=== PATIENT | female | born 1940 | race Two or more races ===

== ENCOUNTER 2025-04-20 12:24 | Outpatient (CLI) | payer BC, SELFPAY ==
--- NOTE | 2025-04-20 13:56 | P.ANES_ITS ---
Anesthesia Charges Start Date/Time Anesthesia Start Date: 04/20/25 Anesthesia Start Time: 13:27 Stop Date/Time Anesthesia Stop Date: 04/20/25 Anesthesia Stop Time: 13:53 Summary Extremes of Age - Over 70 or under 1: MDA Coding CPT Codes CPT Codes: ANES LWR INTST NDSC NOS - [id number] ([id number]) P2 - PATIENT W/MILD SYST DISEASE, QK - CHART COLLECTOR 2-4 CNCRNT ANES PROC, QX - NATURALIZATION EXAMINER SVC W/ MD MED DIRECTION Additional Codes: Summary - Extremes of Age - Over 70 or under 1: MDA ([id number])
--- NOTE | 2025-04-20 13:56 | W.ANESCHARGE ---
Anesthesia Charges Start Date/Time Anesthesia Start Date: 04/20/25 Anesthesia Start Time: 13:27 Stop Date/Time Anesthesia Stop Date: 04/20/25 Anesthesia Stop Time: 13:53 Summary Extremes of Age - Over 70 or under 1: MDA Coding CPT Codes CPT Codes: ANES LWR INTST NDSC NOS - [id number] ([id number]) P2 - PATIENT W/MILD SYST DISEASE, QK - UNLOADER 2-4 CNCRNT ANES PROC, QX - CABLE FERRY OPERATOR SVC W/ MD MED DIRECTION Additional Codes: Summary - Extremes of Age - Over 70 or under 1: MDA ([id number])
--- NOTE | 2025-04-20 13:57 | P.ANES_ITS ---
Anesthesia Charges Start Date/Time Anesthesia Start Date: 04/20/25 Anesthesia Start Time: 13:27 Stop Date/Time Anesthesia Stop Date: 04/20/25 Anesthesia Stop Time: 13:53 Coding CPT Codes CPT Codes: LOWELL LWR INTST NDSC NOS - [id number] ([id number]) P2 - PATIENT W/MILD SYST DISEASE, QK - MEAL COOKER 2-4 CNCRNT ANES PROC, QX - UPSETTING MACHINE OPERATOR SVC W/ MD MED DIRECTION
--- NOTE | 2025-04-20 13:57 | W.ANESCHARGE ---
Anesthesia Charges Start Date/Time Anesthesia Start Date: 04/20/25 Anesthesia Start Time: 13:27 Stop Date/Time Anesthesia Stop Date: 04/20/25 Anesthesia Stop Time: 13:53 Coding CPT Codes CPT Codes: LOWELL LWR INTST NDSC NOS - [id number] ([id number]) P2 - PATIENT W/MILD SYST DISEASE, QK - INFORMATION MANAGEMENT OFFICER 2-4 CNCRNT ANES PROC, QX - PLANT ENGINEERING MANAGER SVC W/ MD MED DIRECTION
== END 2025-04-20 12:25 | disposition home or self-care (01) ==
PROVIDERS: PCP Family Medicine; Visit Provider Internal Medicine Gastroenterology
DX: K92.1 Melena (principal); D12.2 Benign neoplasm of ascending colon; D12.8 Benign neoplasm of rectum
CPT/HCPCS: 00811; 45385; 88305; 99100; T1013; J2704

== ENCOUNTER 2025-06-11 20:40 | Emergency (ER) | payer BC, SELFPAY ==
[2025-06-11] VITALS (7 sets, daily range): BP systolic 154–196; BP diastolic 67–73; PULSE 57–67; RESP 17–25; TEMP 36.8; O2SAT 96–98; BMI 31.8
--- OUTSIDE RECORDS SUMMARY | 2025-06-11 20:42 | XMS_ITS | Clinical Summary ---
Author Organization [facility] [employer] Address [address] [place] [address] Care Team Providers Care Lawn Care Professional Name Role Phone Keerthi Singh DO Primary Care Provider [phone] Allergies No known active allergies Medications cholecalciferol, Vitamin D3, (Vitamin D-3) 5,000 unit tab tablet Take 1 Tablet (5,000 units) by mouth once daily. 05/22/20 Active ascorbic acid, vitamin C, (Vitamin C) 500 mg tablet Take 1 Tablet (500 mg) by mouth once daily. 05/22/20 Active cyanocobalamin (Vitamin B-12) 250 mcg tablet Administer via J-tube once daily. 05/22/20 Active magnesium 250 mg tab Take 1 Tablet (250 mg) by mouth once daily. 05/22/20 Active cetirizine (ZYRTEC) 5 mg tablet Take 1 Tablet (5 mg) by mouth once daily. 05/22/20 Active biotin 5,000 mcg TbDi Take 1 Tablet (5,000 mcg) by mouth. 05/22/20 Active calcium carbonate (CALTRATE) 600 mg calcium (1,500 mg) tablet Take 1 Tablet (600 mg) by mouth two times daily with meals. 05/22/20 24 Active Zvaft-0-ZMH-EPA-Fi sh Oil 1,000 mg (120 mg-180 mg) cap Take 1 Capsule (1,000 mg) by mouth. 05/22/20 Active CPAPIndications:Ob structive sleep apnea on CPAP RESMED CPAP (E0601) machine for home use at pressure: 5-15cmw, Choice of mask (A7030 or A7034) w/full face cushion (A7031) x1/mo, nasal cushion (A7032) x2/mo, or nasal pillows (A7033) x 2/mo; Length of Need: 99 months; Frequency of use: Daily 1 Each 11/10/19 25 Active losartan (COZAAR) 25 mg tabletIndications: Cough due to LASHA inhibitor Take 1 Tablet (25 mg) by mouth once daily. 90 Tablet 3 05/28/20 25 Active pantoprazole (PROTONIX) 40 mg delayed-release tabletIndications: Gastroesophageal reflux disease with esophagitis, unspecified whether hemorrhage Take 1 Tablet (40 mg) by mouth once daily. 90 Tablet 3 05/28/20 25 Active metoprolol succinate (TOPROL XL) 25 mg Sustained-Release tabletIndications: Essential hypertension Take 1 Tablet (25 mg) by mouth once daily. 90 Tablet 3 05/28/20 25 Active hydroCHLOROthiazid e 25 mg tabletIndications: Essential hypertension Take 1 Tablet (25 mg) by mouth once daily. 90 Tablet 3 05/28/20 25 Active alendronate (FOSAMAX) 70 mg tabletIndications: Age-related osteoporosis without current pathological fracture Take 1 Tablet (70 mg) by mouth once a week in the morning. 13 Tablet 3 05/28/20 25 Active lovastatin 40 mg tabletIndications: Hyperlipidemia, unspecified hyperlipidemia type Take 1 Tablet (40 mg) by mouth once daily. 90 Tablet 3 05/28/20 25 Active fluticasone (50 mcg per actuation) nasal solution (FLONASE)Indicatio ns:Chronic allergic rhinitis Inhale 2 Sprays in both nostrils once daily. 16 g 5 05/28/20 25 Active lovastatin (MEVACOR) 40 mg tabletIndications: Hyperlipidemia, unspecified hyperlipidemia type Take 1 Tablet (40 mg) by mouth once daily. 90 Tablet 3 06/19/20 24 025 Discontin ued(Reord er (E-cancel not sent)) pantoprazole (PROTONIX) 40 mg delayed-release tabletIndications: Gastroesophageal reflux disease with esophagitis, unspecified whether hemorrhage Take 1 Tablet (40 mg) by mouth once daily. 90 Tablet 3 12/13/ 025 Discontin ued(Reord er (E-cancel not sent)) lisinopriL (PRINIVIL; ZESTRIL) 5 mg tabletIndications: Essential hypertension Take 1 Tablet (5 mg) by mouth once daily. 90 Tablet 3 08/16/19 25 025 Discontin ued(*Rufus rgic/Adve rse Rxn/Side Effects) alendronate (FOSAMAX) 70 mg tabletIndications: Age-related osteoporosis without current pathological fracture Take 1 Tablet (70 mg) by mouth once a week in the morning. 13 Tablet 3 08/16/19 25 025 Discontin ued(Reord er (E-cancel not sent)) hydroCHLOROthiazid e 25 mg tabletIndications: Essential hypertension Take 1 Tablet (25 mg) by mouth once daily. 90 Tablet 3 12/19/19 25 025 Discontin ued(Reord er (E-cancel not sent)) polyethylene glycol-electrolyte (GOLYTELY) 236-22.74-6.74 -5.86 gram suspensionIndicati ons:Encounter for screening colonoscopy Drink 2 liters (half the bottle) the day before colonoscopy and 2 liters (remaining prep) 6 hours prior to colonoscopy appointment. 4000 mL 04/13/20 025 Discontin ued(*Med complete/ Regimen complete/ Level of care change) metoprolol succinate (TOPROL XL) 25 mg Sustained-Release tabletIndications: Essential hypertension Take 1 Tablet (25 mg) by mouth once daily. 90 Tablet 1 04/21/20 025 Discontin ued(Reord er (E-cancel not sent)) Active Problems Problem Noted Date Diagnosed Date Paroxysmal tachycardia 05/28/2025 Paroxysmal SVT (supraventricular tachycardia) Age-related osteoporosis wit hout current pathological fracture 05/22/2024 Overview (05/22/2024): Started Fosamax in 2021 ([place], [place]) Obstructive sleep apnea on CPAP 05/22/2024 Gastroesophageal reflux disease with esophagitis 05/22/2024 Peptic ulcer disease 05/22/2024 Essential hypertension 05/22/2024 Bilateral hearing loss 05/22/2024 Encounters Date Type Department Care Team Description 05/29/2025 Telephone [facility] [address] [place] [address] Keerthi Singh Kassidy, DO Results 05/28/2025 7:40 AM CDT Office Visit [facility] [address] [place] [address] Keerthi Singh Kassidy, DO Medicare ANNUAL (subsequent) Visit (84 year old female); Joint Pain (Feet x2 months, hands x2 years, PT did not help); Constipation (Takes Miralax daily, wondering if this is the only option? Ok to continue or other options? ); Cough (x2 years - worse over the last 2 weeks - no phlegm - allergies? ); Gas (Gas/belching ) 05/28/2025 Travel 05/11/2025 8:00 AM CDT Ancillary Procedure [facility] [address] [place] [phone] 05/11/2025 Travel 04/21/2025 Lab Requisition [facility] [phone] Jerry Maxwell MD 04/20/2025 12:30 PM CDT Office Visit [facility] [address] [place] [phone] Jerry aMxwell MD 04/19/2025 Telephone [facility] [address] [place] [address] Keerthi Singh, DO Form 04/19/2025 Refill [facility] [address] [place] [address] Keerthi Singh, DO Refill Request (Metoprolol Succinate) 04/13/2025 Telephone [facility] [address] [place] [address] Jerry Maxwell MD Screening 03/28/2025 Orders Only [facility] [address] [place] [phone] Eloisa Spencer, RGloriaTGloria (ARRT) 1 scan: (1-Ord) NFLD-EKG-03/27/2025 03/27/2025 9:00 AM CDT Office Visit [facility] [address] [place] [address] Sarabjit Holloway MD Consult (Paroxysmal SVT (supraventricular tachycardia) per Dr. Keerthi Singh ) 03/27/2025 Travel from Last 3 Months Immunizations Immunization Administration Dates Next Due COVID-19 VACCINE COMIRNATY ( [employer] 30MCG/0.3ML) 12YO+ PFS 07/22/2023 DTaP 03/09/2013 Influenza, High-dose Inactivated 03/29/2024 Influenza, Inactivated IIV3 (Age 65+ Years) Preserv Free 05/21/2025 Pneumococcal Poly,23-Valent (Pneumovax) 04/07/20 21,03/22/2013 Pneumococcal conj 13-Valent (Prevnar 13) 020 RSV, Recombinant ADJ Reconst ituted (Arexvy 120MCG/0.5mL) 05/28/2023 Tdap 10/25/2023,03/22/2013 Tetanus Toxoid, Unspecified 08/09/2011 Zoster (Shingrix-RZV, recombinant) 08/24/2023, Social History Tobacco Use Types Packs/Day Years Used Date Smoking Tobacco: Former Cigarettes 0.3 67.7 S tarted: 10/1957 Smokeless Tobacco: Never Tobacco Cessation:Counseling Given: Yes Alcohol Use Standard Drinks/Week Comments Not Currently 0 (1 standard drink = 0.6 oz pur e alcohol) PHQ-2 Answer Date Recorded PHQ-2 TOTAL SCORE 0 05/28/2025 Social Connections Answer Date Recorded Do you often feel lonely or isolated from those around you? 0 05/28/2025 Financial Resource Strain Answer Date R ecorded Difficulty of Paying Living Expenses 3 05/28/2025 Difficulty of Paying Living Expenses Not on file 05/28/2025 Food Insecurity Answer Date Recorded Do you worry your food will run out before you are able to buy more? 1 05/28/2025 Transportation Needs Answer Date Record ed Does lack of transportation keep you from medica l appointments? 1 05/28/2025 Does lack of transportation keep you from work, meetings or getting things that you need? 1 05/28/2025 Housing Stability Answer Date Recorded What is your housing situation today? 1 05/28/2025 Utilities Answer Date Recorded Do you have trouble paying f or utilities (for example, heat, electricity, water, phone)? 1 05/28/2025 Comments No Sex and Gender Information Value Date Recorded Sex Assigned at Not on file Legal Sex Female 1:47 PM CDT Gender Identity Not on file Sexual Orientation Not on file Obstetrics History Last Filed Vital Signs Vital Sign Reading Time Taken Comments Blood Pressure 158/68 05/28/2025 8:10 AM CDT Pulse 55 05/28/2025 8:10 AM CDT Temperature 36.7 C (98 F) 01/29/2025 7:43 AM CDT Respiratory Rate - - Oxygen Saturation 97% 05/28/2025 8:10 AM CDT Inhaled Oxygen Concentration - - Weight 76.9 kg (169 lb 8 oz) 05/28/2025 8:10 AM CDT Height 151.7 cm (4' 11.72) 05/28/2025 8:10 AM C DT Body Mass Index 33.41 05/28/2025 8:10 AM CDT Plan of Treatment Health Maintenance Due Date Last Done Comments BMI (ht and wt on same day) for age 18+ 05/28/2026 05/28/2025, 01/29/2025, 11/09/2024, Additional history exists Depression screening for age 12+ 05/28/2026 05/28/2025, 05/22/2024 Medicare Wellness for age 65+ 05/29/2026 05/28/2025, 05/22/2024 Tetanus booster 10/24/2033 10/25/2023, 03/22/2013 Pneumococcal series for age 50+ Completed 04/07/2021, 10/16/2019, 03/22/2013 RSV vaccine for adults or Completed 05/28/2023 Zoster (shingles) series for age 50+ Completed 08/24/2023, 05/28/2023 DEXA/DXA scan for age 65+ Completed 06/19/2024 Influenza Vaccine Completed 05/21/2025, 03/29/2024 Hepatitis B series for 19+ Aged Out N o longer eligible based on patient's age to complete this topic Procedures Procedure Name Priority Date/Time Associated Diagnosis Comments VITAMIN B12 Routine 05/28/2025 9:03 AM CDT Paresthesia of both hands VITAMIN D 25 (DEFICIENCY) Routine 05/28/2025 9:03 AM CDT Age-related osteoporosis without current pathological fracture BASIC METABOLIC PANEL Routine 05/28/2025 9:03 AM CDT Essential hypertension LIPID PANEL W REFLEX MEASURED LDL Routine 05/28/2025 9:03 AM CDT Hyperlipidemia, unspecified hyperlipidemia type ECHO TTE COMPLETE WO CONTRAST Routine 05/11/2025 8:39 AM CDT Paroxysmal SVT (supraventricular tachycardia) (HC) LAB TRACKING EVENT Routine 04/20/2025 1: 38 PM CDT PATH TISSUE EXAM Routine 04/20/2025 1:38 PM CDT COLONOSCOPY DIAGNOSTIC Routine 04/20/2025 12:00 AM CDT Hematochezia TX READING EKG - NO CHARGE, COMP ONLY Routine 03/28/2025 3:17 PM CDT Paroxysmal SVT (supraventricular tachycardia) (HC) EKG 12 LEAD Routine 03/28/2025 3:17 PM CDT Paroxysmal SVT (supraventricular tachycardia) (HC) XR DXA BONE DENSITY 2 SITES AXIAL Routine 06/19/2024 8:55 AM GEOCHEMIST Age-related osteoporosis without current pathological fracture from Last 3 Months or Most Recently Relevant to Health Maintenance Results * (ABNORMAL) LIPID PANEL W REFLEX MEASURED LDL (05/28/2025 9:03 AM CDT) CHOLESTEROL, TOTAL 169 <200 mg/dL 05/29/2025 3:55 AM CDT [facility] TRIGLYCERIDES 157(H) <150 mg/dL 05/29/2025 3:55 AM CDT [facility] HDL CHOLESTEROL 59 > OR = 50 mg/dL 05/29/2025 3:55 AM CDT [facility] NON HDL CHOLESTEROL 110 <130 mg/dL (calc) 05/29/2025 3:55 AM CDT [facility] Comment: For patients with diabetes plus 1 major ASCVD risk factor, treating to a non-HDL-C goal of <100 mg/dL (LDL-C of <70 mg/dL) is considered a therapeutic option. CHOL/HDLC RATIO 2.9 <5.0 (calc) 05/29/2025 3:55 AM CDT [facility] LDL-CHOLESTEROL 85 mg/dL (calc) 05/29/2025 3:55 AM CDT [facility] Comment: Reference range: <100 Desirable range <100 mg/dL for primary prevention; <70 mg/dL for patients with CHD or diabetic patients with > or = 2 CHD risk factors. LDL-C is now calculated using the Isatu calculation, which is a validated novel method providing better accuracy than the Friedewald equation in the estimation of LDL-C. Jerry JACK et al. ZELALEM. 2013;310(19): 8409-6584 (http://education.[employer]/faq/DUH713) Blood BLOOD SPECIMEN / Unknown [facility] / Unknown 05/28/2025 9:03 AM CDT 05/28/2025 9:03 AM CDT Keerthi Singh DO CHEMISTRY Final Result [facility] [address] [address], * VITAMIN D 25 (DEFICIENCY) (05/28/2025 9:03 AM CDT) VITAMIN D,25-OH,TOTAL,IA 60 30 - 100 ng/mL 05/29/2025 4:16 AM CDT [facility] Comment: Vitamin D Status 25-OH Vitamin D: Deficiency: <20 ng/mL Insufficiency: 20 - 29 ng/mL Optimal: > or = 30 ng/mL For 25-OH Vitamin D testing on patients on D2-supplementation and patients for whom quantitation of D2 and D3 fractions is required, the QuestAssureD(TM) 25-OH VIT D, (D2,D3), LC/MS/MS is recommended: order code 73486 (patients >2yrs). See Note 1 Note 1 For additional information, please refer to http://education.[employer]/faq/GBO273 (This link is being provided for informational/ educational purposes only.) Blood BLOOD SPECIMEN / Unknown [facility] / Unknown 05/28/2025 9:03 AM CDT 05/28/2025 9:03 AM CDT Perfect [facility] DO SEND OUTS Final Result Performing Organization Address [facility]/ZIP Co de Phone Number [facility] [address] [address], * (ABNORMAL) VITAMIN B12 (05/28/2025 9:03 AM CDT) VITAMIN B12 1426(H) 200 - 1100 pg/mL 05/29/2025 6:34 AM CDT [facility] Blood BLOOD SPECIMEN / Unknown [facility] / Unknown 05/28/2025 9:03 AM CDT 05/28/2025 9:03 AM CDT [facility] CHEMISTRY Final Result Performing Organization Address [facility] Co de Phone Number [facility] [address] [address], [place] [phone] * BASIC METABOLIC PANEL (05/28/2025 9:03 AM CDT) SODIUM 139 135 - 146 mmol/L 05/29/2025 3:55 AM CDT [facility] POTASSIUM 4.0 3.5 - 5.3 mmol/L 05/29/2025 3:55 AM CDT [facility] CARBON DIOXIDE 32 20 - 32 mmol/L 05/29/2025 3:55 AM CDT [facility] GLUCOSE 87 65 - 99 mg/dL 05/29/2025 3:55 AM CDT [facility] Comment: Fasting reference interval CALCIUM 9.7 8.6 - 10.4 mg/dL 05/29/2025 3:55 AM CDT [facility] CREATININE 0.79 0.60 - 0.95 mg/dL 05/29/2025 3:55 AM CDT [facility] BUN/CREATININE RATIO SEE NOTE: 6 - 22 (calc) 05/29/2025 3:55 AM CDT [facility] Comment: Not Reported: BUN and Creatinine are within reference range. EGFR 74 > OR = 60 mL/min/1. 73m2 05/29/2025 3:55 AM CDT [facility] UREA NITROGEN (BUN) 24 7 - 25 mg/dL 05/29/2025 3:55 AM CDT [facility] ELECTROLYTE BALANCE 7 7 - 17 mmol/L (calc) 05/29/2025 3:55 AM CDT [facility] CHLORIDE 100 98 - 110 mmol/L 05/29/2025 3:55 AM CDT [facility] Blood BLOOD SPECIMEN / Unknown [facility] / Unknown 05/28/2025 9:03 AM CDT 05/28/2025 9:03 AM CDT us Keerthi Kassidy Singh DO CHEMISTRY Final Result [facility] [address] [address], * ECHO TTE COMPLETE WO CONTRAST (05/11/2025 8:39 AM CDT) AORTIC VALVE MEAN PG 7 mmHg EJECTION FRACTION 75 % LVEDD 4.5 cm EJECTION FRACTION 65 - 70% Anatomical Region Laterality Modality Ultrasound 05/11/2025 8:13 AM CDT Narrative 05/11/2025 8:48 AM CDT ECHOCARDIOGRAM ELVIRA BRADLEY : 1940 84 years Study Date: 05/11/2025 8:13:45 AM Gender: F BP: 122/68 mmHg Height: 150.00 cm BSA: 1.71 m Weight: 76.00 kg Tech: EUGENE Referring MD: SARABJIT HOLLOWAY Site: [facility] Reading Location: Mobile-OP Patient Location: Outpatient. Procedure: 2D, Color Doppler and Spectral Doppler. Indication for study: Paroxysmal SVT (supraventricular tachycardia) Cardiac Rhythm: Regular.Study quality: Fair. Final Impressions: 1. Normal LV size, normal wall thickness, normal function with an estimated EF of 65 - 70%. 2. Right ventricular cavity size is normal, global systolic RV function is normal. 3. Moderately enlarged left atrium. 4. The aortic valve is normal, trileaflet and sclerotic, no stenosis and mild to moderate regurgitation. Comparison There are no prior studies on this patient for comparison purposes. Chamber Sizes and Function Normal left ventricular size, normal wall thickness, normal global systolic function with an estimated EF of 65 - 70%. No resting regional wall motion abnormality visualized. Left atrial size is moderately enlarged. Right ventricular cavity size is normal, global systolic RV function is normal. RV wall thickness is normal. The right atrium is normal. Right atrial volume index is 28 ml/m . Right atrial area is 16 cm . The pulmonary artery is of normal size and origin. The sinus of Valsalva is normal sized. The ascending aorta is normal sized. Valves, RV Pressures and Diastolic Function The aortic valve is normal in structure, trileaflet and sclerotic, no stenosis and mild to moderate regurgitation. The mitral valve is normal in structure, mild mitral regurgitation. Normal diastolic function. The tricuspid valve is normal in structure, trace tricuspid regurgitation. The pulmonic valve is normal. No pulmonary regurgitation. Masses, Effusion, Shunts There is no pericardial effusion. The inferior vena cava is normal sized, respiratory size variation greater than 50%. No left to right shunting was detected by limited color flow Doppler interrogation of the interatrial septum. MEASUREMENTS AND CALCULATIONS 2-D Measurements and LV Function: LVID (d) 4.5 cm LV FS% (2D) 36 % LVID (s) 2.9 cm LVOT diameter 2.0 cm IVS (d) 0.7 cm HR 53 bpm LVPW (d) 0.9 cm LA Vol index 51 ml/m2 Ao Sinus 2.9 cm RA Vol index 28 ml/m2 Ao Sinus ULN 3.7 cm * RA area 16 cm Asc Ao 3.5 cm RV Basal Diam 3.5 cm Asc Ao ULN 4.0 cm * RV Mid Diam 2.7 cm LA 3.8 cm * Input age outside of range, reported values correspond to Age = 81 Diastology: Mitral Tissue Doppler E Peak 1.2 m/s e', Septum 0.07 m/s A Peak 1.1 m/s e', Lateral 0.08 m/s E/A 1.0 E/e' Average 15.92 DT 184 msec Aortic Valve: Vmax 1.9 m/s OPAL (V) 2.06 cm VTI 0.50 m OPAL (I) 2.13 cm LVOT V max 1.3 m/s Max PG 15 mmHg LVOT VTI 0.35 m Mean PG 7 mmHg SV 106 ml Dim Index 0.70 SV index 62 ml/m CO 5.6 l/min CI 3.3 l/min/m Mitral Valve: MVA 4.1 cm MV P 1/2 53 msec Tricuspid Valve and estimated PA pressures: TAPSE 2.7 cm . This study was interpreted by an [facility] accredited facility. Final Procedure Note Roger Beth MD - 05/11/2025 ECHOCARDIOGRAM ELVIRA BRADLEY : 1940 84 years Study Date: 05/11/2025 8:13:45 AM Gender: F BP: 122/68 mmHg Height: 150.00 cm BSA: 1.71 m Weight: 76.00 kg Tech: EUGENE Referring MD: SARABJIT HOLLOWAY Site: [facility] Reading Location: Mobile-OP Patient Location: Outpatient. Procedure: 2D, Color Doppler and Spectral Doppler. Indication for study: Paroxysmal SVT (supraventricular tachycardia) Cardiac Rhythm: Regular.Study quality: Fair. Final Impressions: 1. Normal LV size, normal wall thickness, normal function with anestimated EF of 65 - 70%. 2. Right ventricular cavity size is normal, global systolic RV functionis normal. 3. Moderately enlarged left atrium. 4. The aortic valve is normal, trileaflet and sclerotic, no stenosis andmild to moderate regurgitation. Comparison There are no prior studies on this patient for comparison purposes. Chamber Sizes and Function Normal left ventricular size, normal wall thickness, normal globalsystolic function with an estimated EF of 65 - 70%. No resting regionalwall motion abnormality visualized. Left atrial size is moderatelyenlarged. Right ventricular cavity size is normal, global systolic RVfunction is normal. RV wall thickness is normal. The right atrium isnormal. Right atrial volume index is 28 ml/m . Right atrial area is 16cm . The pulmonary artery is of normal size and origin. The sinus ofValsalva is normal sized. The ascending aorta is normal sized. Valves, RV Pressures and Diastolic Function The aortic valve is normal in structure, trileaflet and sclerotic, nostenosis and mild to moderate regurgitation. The mitral valve is normal instructure, mild mitral regurgitation. Normal diastolic function. Thetricuspid valve is normal in structure, trace tricuspid regurgitation. Thepulmonic valve is normal. No pulmonary regurgitation. Masses, Effusion, Shunts There is no pericardial effusion. The inferior vena cava is normal sized,respiratory size variation greater than 50%. No left to right shunting wasdetected by limited color flow Doppler interrogation of the interatrialseptum. MEASUREMENTS AND CALCULATIONS 2-D Measurements and LV Function: LVID (d) 4.5 cm LV FS% (2D) 36% LVID (s) 2.9 cm LVOT diameter2.0 cm IVS (d) 0.7 cm HR 53bpm LVPW (d) 0.9 cm LA Vol index 51ml/m2 Ao Sinus 2.9 cm RA Vol index 28ml/m2 Ao Sinus ULN 3.7 cm * RA area 16cm Asc Ao 3.5 cm RV Basal Diam3.5 cm Asc Ao ULN 4.0 cm * RV Mid Diam2.7 cm LA 3.8 cm * Input age outside of range, reported values correspond to Age = 81 Diastology: Mitral Tissue Doppler E Peak 1.2 m/s e', Septum 0.07 m/s A Peak 1.1 m/s e', Lateral 0.08 m/s E/A 1.0 E/e' Average 15.92 DT 184 msec Aortic Valve: Vmax 1.9 m/s OPAL (V) 2.06 cm VTI 0.50 m OPAL (I) 2.13 cm LVOT V max 1.3 m/s Max PG 15 mmHg LVOT VTI 0.35 m Mean PG 7 mmHg SV 106 ml Dim Index 0.70 SV index 62 ml/m CO 5.6 l/min CI 3.3 l/min/m Mitral Valve: MVA 4.1 cm MV P 1/2 53 msec Tricuspid Valve and estimated PA pressures: TAPSE 2.7 cm . This study was interpreted by an [facility] accredited facility. Final us Sarabjit Holloway MD ECHO ORD Final Result * LAB TRACKING EVENT (04/20/2025 1:38 PM CDT) Other (Other) Client Collect / Unknown 04/20/2025 1:38 PM CDT 04/21/2025 10:45 AM CDT us Jerry Maxwell MD LAB BILL ONLY Final Res ult [facility] [address] [place] [address], [place] * PATH TISSUE EXAM (04/20/2025 1:38 PM CDT) Case Report Pathology Report Case: [id number] Authorizing Provider: Jerry Maxwell MD Collected: 04/20/2025 1338 Ordering Location: [facility] Received: 04/23/2025 0928 Pathologist: Joana Shetty MD Specimen: Ascending Colon Polyp 04/24/2025 12:39 PM CDT [facility] Final Diagnosis A) COLON, ASCENDING, POLYPECTOMIES: 1. Tubular adenomas (4) 2. Negative for high grade dysplasia 3. Per the colonoscopy report: a. Polyp sizes: 2 mm - 3 mm b. Resection: Complete c. Retrieval: Complete 04/24/2025 12:39 PM CDT [facility] at 1239 CDT Clinical Information Ms. Felicia Bradley is a 84 y.o. with hematochezia. 04/24/2025 12:39 PM CDT [facility] Gross Description A) Received in formalin are 5 mohr mucosal fragments ranging from 2 mm to 4 mm in greatest dimension, which are entirely submitted in one cassette. It is labeled with the patient's name and designated ascending colon multiple polyps. Sonia R Anhalt 04/23/2025 9:35 AM 04/24/2025 12:39 PM CDT [facility] Microscopic Description The final diagnosis is based on microscopic examination of appropriate sections of all specimens. 04/24/2025 12:39 PM CDT [facility] Additional Information Interpreted at [facility] - [address] [facility] [address] [address] 04/24/2025 12:39 PM CDT [facility] Other (Ascending Colon Polyp) 04/20/2025 1:38 PM CDT 04/23/2025 9:28 AM CDT Jerry Maxwell MD PATHOLOGY/CYTOLOGY Final Result Performing Organization Address City/State/[facility] Co de Phone Number [facility] [address] [place] [address], * COLONOSCOPY DIAGNOSTIC (04/20/2025 12:00 AM CDT) Keerthi Singh DO GI PROCEDURE ORD Final Result * EKG 12 LEAD (03/28/2025 3:17 PM CDT) Sarabjit Holloway MD EKG ORD Final Result * TX READING EKG - NO CHARGE, COMP ONLY (03/28/2025 3:17 PM CDT) Sarabjit Holloway MD PB - PROVIDER READINGS Final Result * (ABNORMAL) XR DXA BONE DENSITY 2 SITES AXIAL (06/19/2024 8:55 AM GEOCHEMIST) Anatomical Region Laterality Modality Spine, HIPS, HIPL, HIPR Other Impressions 06/20/2024 1:54 PM GEOCHEMIST Osteopenia. Due to the stability of the bone density, continue present medication if indicated. RECOMMENDATIONS: The National Osteoporosis Foundation recommends pharmacologic treatment for patients with T-scores of -2.5 or less, patients with prior history of fragility fractures, or patients with 10-year probability of greater than 3% at hips or greater than 20% of suffering major osteoporotic fractures. Recommend continued optimization of calcium and vitamin D intake through dietary means and/or supplementation and regular exercise. Continue current Alendronate (Fosamax) medication treatment. Consider a drug holiday from bisphosphonates if indicated Anabel Ahumada PA-C [facility] 06/20/2024 Narrative 06/20/2024 1:54 PM GEOCHEMIST For Patients: Results are automatically released to your [facility] ([employer]) account once available, in compliance with federal regulations. This means that you may see your results before your provider has had a chance to review them. Please allow 2-3 business days for your provider to comment on the results. XR DXA Bone Mineral Density (BMD) EXAM LOCATION: [address] [address] PATIENT NAME: Elvira Bradley DATE OF : 1940 EXAM DATE: 06/19/2024 REQUESTING PROVIDER: Keerthi Singh DO GENDER AT : female HEIGHT: 4' 10.82 (05/22/2024) WEIGHT: 172 lb 14.4 oz (05/22/2024) MENOPAUSAL STATUS: Postmenopausal RACE/ETHNICITY: Patient Declined RISK FACTORS: Family History of Osteoporosis, Family History of Hip Fracture (parental), and Smoking (prior) CURRENT MEDICATION FOR BONE LOSS: Alendronate (Fosamax) INDICATION: Follow-up of existing osteoporosis and Post-Menopause COMPARISON DATE(S): None DXA scans are compared to prior studies for a patient only when the two (or more) studies were performed on the same scanner. It is not possible to compare data generated on one scanner to data from another because there are not standards in DXA equipment. This applies even if the two scanners are made by the same front end engineer. PROCEDURE: Dual-energy x-ray absorptiometry performed with routine technique. Reporting is completed in the form of a T-score. The T-score represents the standard deviation from peak bone mass based on young healthy adult. A Z-score is used for diagnosis in premenopausal women, and for men under the age of 50. FINDINGS: RESULT LUMBAR SPINE L1 - L4 BMD: 1.536 g/cm2 T-Score: + 2.8 Z-Score: + 4.2 Change from prior: None RESULTS FEMUR Left femoral neck BMD: 0.819 g/cm2 T-Score: - 1.6 Z-Score: + 0.4 Change from prior: None Right femoral neck BMD: 0.827 g/cm2 T-Score: - 1.5 Z-Score: + 0.5 Change from prior: None Left hip BMD: 0.878 g/cm2 T-Score: - 1.0 Z-Score: + 0.8 Change from prior: None Right hip BMD: 0.835 g/cm2 T-Score: - 1.4 Z-Score: + 0.5 Change from prior: None WHO criteria: Normal: T-score at or above -1 SD Osteopenia: T-score between -1.1 and -2.4 SD Osteoporosis: T-score at or below -2.5 SD Keerthi Kassidy Shaqra DO DEXA Final Result from Last 3 Months or Most Recently Relevant to Health Maintenance Insurance MEDICARE PART A HB ONLY MEDICARE PART B HB ONLY [employer] [facility] Member Subscriber Plan / Payer (Ef fective 2024-Present) Name:Elvira Light Relation to Subscriber:Self Name:Elvira Light Payer ID:[id number] (NAIC) Group ID:[id number] Type:Not on file Address: [address]: [id number] [place] [address] Care Teams [employer] Professional Relationship Specialty Start Date End Date Keerthi Singh DO [address] [place] [address] PCP - General Family Practice 04/07/24
--- NOTE | 2025-06-11 22:06 | ED.CHESTPAIN ---
HPI - Chest Pain General Time Seen by Provider: 22:06 Date Seen: 06/11/25 Chief Complaint: Hypertension Stated Complaint: High BP Time Seen by Provider: 06/11/25 22:06 Source: patient, family, RN notes reviewed, old records reviewed and pump house operator (Adult daughter) Mode of arrival: ambulatory Limitations: no limitations History of Present Illness HPI narrative: Gucci is a very pleasant 84-year-old female with history of hypertension currently on hydrochlorothiazide, losartan and metoprolol who comes to the emergency room for evaluation regarding difficulty breathing and headache. Patient had the onset of band like discomfort around her head associated with difficulty with taking a deep breath while she was getting ready to cut up some fruit at approximately 1800 hours. She does not really describe any chest pain. She took her blood pressure and the systolic number was between 190 and 200. She notes that the feelings lasted for approximately 1/2 hour. She notes resolution of the headache right now. She thinks her eyes are still somewhat slightly blurry. She denies a fever. She has had a cough for a few months Patient denies unusual lower extremity edema. No dysuria. No recent trauma. She is not currently on a blood thinner. She was experiencing a cough for a few months and thus her primary thought it was possibly is lisinopril. They switched her to losartan. She is wondering if maybe that is what is causing the elevated blood pressure. Related Data Home Medications ?Medication ?Instructions ?Recorded ?Confirmed hydrochlorothiazide 25 mg tablet 25 mg PO DAILY 06/11/25 06/11/25 losartan 25 mg tablet 25 mg PO DAILY 06/11/25 06/11/25 lovastatin 40 mg tablet 40 mg PO DAILY 06/11/25 06/11/25 metoprolol succinate 25 mg 25 mg PO DAILY 06/11/25 06/11/25 tablet,extended release 24 hr pantoprazole 40 mg tablet,delayed 40 mg PO DAILY 06/11/25 06/11/25 release Allergies Allergy/AdvReac Type Severity Reaction Status Date / Time No Known Drug Allergies Allergy Verified 06/11/25 21:03 Review of Systems Status of ROS Reports: 10 or more systems reviewed and unremarkable except as noted in History and below Const Denies: fever, chills or fatigue Eyes Reports: blurry vision (Slightly) ENMT Denies: throat pain, neck pain or nasal congestion Cardio Reports: chest pain (Describes a pressure in difficulty with taking a deep breath.) and shortness of breath with exertion Resp Reports: shortness of breath and cough; Denies: wheezing GI Denies: abdominal pain, nausea, vomiting or diarrhea Denies: painful urination or urinary frequency Musculo Denies: back pain, neck pain, extremity pain, extremity swelling or joint pain Neuro Reports: headache (Now resolved); Denies: numbness in extremities or weakness in extremities Endo Denies: fatigue Allergy/Immuno Denies: wheezing PFSH PFSH Social History Smoking Status: Never smoker How often do you have a drink containing alcohol: never AUDIT-C Alcohol total score: 0 Non-prescribed substance use: denies use Exam Narrative Exam Narrative: Alert and oriented. No acute distress. Interactive with her daughter and myself. EOM is full with pupils equal round and reactive. Head is atraumatic normocephalic. Neck is supple range of motion is full. No guarded movement. Face symmetrical with eyebrow raise and smile. Heart with a regular rate and rhythm. Lungs are clear bilaterally. Abdomen soft. Moving all extremities. Scant peripheral edema is noted. No calf tenderness with palpation Const Vital Signs, click to edit/add: Vital Signs - 24 hr 06/11/25 20:57 06/11/25 22:42 06/11/25 23:03 Temperature 98.2 F Pulse Rate 60 60 Pulse Rate [Pulse Oximeter] 67 Respiratory Rate 18 18 25 H Blood Pressure 154/73 H 170/73 H Blood Pressure [Right Upper Arm] 196/67 H Pulse Oximetry 97 98 98 Oxygen Delivery Method Room Air Room Air 06/11/25 23:04 06/11/25 23:15 06/11/25 23:30 Temperature Pulse Rate 60 57 L 59 L Pulse Rate [Pulse Oximeter] Respiratory Rate 21 17 19 Blood Pressure Blood Pressure [Right Upper Arm] Pulse Oximetry 97 96 97 Oxygen Delivery Method 06/11/25 23:45 06/12/25 00:00 06/12/25 00:15 Temperature Pulse Rate 65 64 63 Pulse Rate [Pulse Oximeter] Respiratory Rate 19 10 L 23 Blood Pressure Blood Pressure [Right Upper Arm] Pulse Oximetry 98 73 L 97 Oxygen Delivery Method 06/12/25 00:36 06/12/25 00:37 06/12/25 00:45 Temperature Pulse Rate 67 59 L 55 L Pulse Rate [Pulse Oximeter] Respiratory Rate 16 23 18 Blood Pressure 174/79 H Blood Pressure [Right Upper Arm] Pulse Oximetry 99 99 96 Oxygen Delivery Method Room Air 06/12/25 00:49 Temperature Pulse Rate 59 L Pulse Rate [Pulse Oximeter] Respiratory Rate 18 Blood Pressure 144/72 H Blood Pressure [Right Upper Arm] Pulse Oximetry 98 Oxygen Delivery Method Room Air Documenting provider has reviewed patient's vital signs: yes Course Course ED Course: At this time differential diagnosis includes but is not limited to acute coronary event, hypertension, anxiety, intracranial event, pneumonia. At this time in regards to the headache it presented in a band like quality around her entire head. She had no focal discomfort, loss of speech or limb movement. Her symptoms have completely resolved at this time. I do not think we are dealing with an intracranial bleed or stroke based on the description of her symptoms or her exam here today which shows no focal neurological deficits. It is hard to know if her elevated blood pressure is causing her symptoms or was a result of her symptoms. At this time blood pressure initially was 196/67 but now repeat is 170/73. Her heart rate is 57. Will check a proBNP, CBC, comprehensive panel, urinalysis, chest x-ray, EKG as well as troponin. Reevaluation(s) Reevaluation #1: No evidence of pneumonia on chest x-ray, white count is normal and there is no evidence of UTI. Also no evidence of electrolyte abnormality and creatinine is within normal limits. Patient has remained stable. Will check a repeat troponin. Reevaluation #2: Second troponin unchanged and negative. EKG reassuring. Patient has had complete resolution of all of her symptoms. Latest blood pressure is 144/72 without any medication intervention. Vital Signs Vital signs: Initial Vital Signs Temperature 98.2 F 06/11/25 20:57 Temperature Source Temporal Artery Scan 06/11/25 20:57 Pulse Rate 67 06/11/25 20:57 Respiratory Rate 18 06/11/25 20:57 Blood Pressure 196/67 H 06/11/25 20:57 Blood Pressure Mean 110 H 06/11/25 20:57 Pulse Oximetry 97 06/11/25 20:57 Oxygen Delivery Method Room Air 06/11/25 20:57 Vital Signs Temperature 98.2 F 06/11/25 20:57 Pulse Rate 67 06/11/25 20:57 Respiratory Rate 18 06/11/25 20:57 Blood Pressure 196/67 H 06/11/25 20:57 Pulse Oximetry 97 06/11/25 20:57 Oxygen Delivery Method Room Air 06/11/25 20:57 Temperature 98.2 F 06/11/25 20:57 Pulse Rate 59 L 06/12/25 00:49 Respiratory Rate 18 06/12/25 00:49 Blood Pressure 144/72 H 06/12/25 00:49 Pulse Oximetry 98 06/12/25 00:49 Oxygen Delivery Method Room Air 06/12/25 00:49 MDM - Chest Pain MDM Narrative Medical decision making narrative: 1. Hypertension-hard to ascertain if the blood pressure caused patient's symptoms were simply a consequence of patient not feeling well. Blood pressure is now dropped to 144 systolic. Patient's creatinine and electrolytes are normal. Will have her double her losartan from 25-50 mg daily. I did stress the importance of follow-up with a basic panel so that we can assess creatinine and potassium and ensure no negative effects of the ARB. 2. Headache-resolved. Patient had no nuchal rigidity persistent headache focal neurological deficits to suggest any significant neurological event tonight. Symptoms are resolved at this time 3. Atypical chest pain-troponin negative x2. EKG reassuring. Patient notes having an echocardiogram without stress test a few weeks ago. Would have her follow-up with her primary MD for recheck. 4. Disposition-patient and her daughter are very anxious to go home. Symptoms occurred at 1800 hours and thus the 2 troponins were greater than 4 hours after the symptoms. With the fact that she has complete resolution of symptoms I do feel she is safe to go home. Have asked her to return for any recurrence of symptoms or onset of new symptoms that are concerning. They voiced understanding. Medical Records Data Attestation: I reviewed the patient's medical records. Lab Data Attestation: I reviewed the patient's lab results. Labs: Lab Results 06/11/25 06/11/25 06/11/25 Range/Units 22:29 22:45 22:50 WBC 7.48 (4.50-11.00) K/uL RBC 4.67 (4.00-5.20) m/uL Hgb 13.3 (12.0-16.0) gm/dL Hct 41.9 (33.0-51.0) % MCV 90 (80-100) fL MCH 29 (26-34) pg MCHC 32 (32-36) gm/dL RDW Coeff of Claudette 13.1 (11.5-15.5) % Plt Count 328 (140-440) K/uL Neut % (Auto) 59.1 (42.0-72.0) % Lymph % (Auto) 28.3 (20-44) % [place] % (Auto) 8.2 (0.0-11.0) % Eos % (Auto) 3.2 (0.0-7.0) % Baso % (Auto) 0.3 (0.0-3.0) % Neut # (Auto) 4.42 (1.7-7.0) K/uL Lymph # (Auto) 2.12 (0.90-2.90) K/uL [place] # (Auto) 0.60 (0.00-0.90) K/UL Eos # (Auto) 0.24 (0.00-0.50) K/uL Baso # (Auto) 0.02 (0.00-0.30) K/uL Abs Immat Gran (auto) 0.07 (0.00-0.30) K/uL Imm/Tot Granulo (auto) 0.9 % Sodium 136 (135-149) mmol/L Potassium 3.7 (3.6-5.1) mmol/L Chloride 99 (96-114) mmol/L Carbon Dioxide 30 (20-32) mmol/L Anion Gap 7 (7-15) mEq/L BUN 23 (7-30) mg/dL Creatinine 0.8 (0.5-1.5) mg/dL Estimated Creat Clear 33.71 Estimated GFR 73 ml/min Glucose 115 (60-115) mg/dL Calcium 9.6 (8.4-10.6) mg/dL Total Bilirubin 0.6 (0.1-1.5) mg/dL AST 28 (12-35) U/L ALT 20 (4-35) U/L Alkaline Phosphatase 70 (40-150) U/L NT-Pro-B Natriuret Pep 224 (See Note) pg/mL Total Protein 8.0 (6.0-8.3) g/dL Albumin 4.5 (3.3-5.0) g/dL Urine Color Yellow (Yellow) Urine Appearance Clear (Clear) Urine pH 7.0 (5.0-8.5) Ur Specific [place] 1.010 (1.000-1.030) Urine Protein Negative (Negative) Urine Glucose (UA) Negative (Negative) Urine Ketones Negative (Negative) Urine Blood Negative (Negative) Urine Nitrite Negative (Negative) Urine Bilirubin Negative (Negative) Urine Urobilinogen 0.2 (0.2-1.0) Ur Leukocyte Esterase Trace A (Negative) Urine RBC 0-2 (0-2) Urine WBC 0-2 (0-5) Ur Squamous Epith Cells Few (None-Few) Urine Bacteria None (None) POC Troponin I 0.02 (0.01-0.04) ng/ml 06/12/25 Range/Units 00:30 WBC (4.50-11.00) K/uL RBC (4.00-5.20) m/uL Hgb (12.0-16.0) gm/dL Hct (33.0-51.0) % MCV (80-100) fL MCH (26-34) pg MCHC (32-36) gm/dL RDW Coeff of Claudette (11.5-15.5) % Plt Count (140-440) K/uL Neut % (Auto) (42.0-72.0) % Lymph % (Auto) (20-44) % [place] % (Auto) (0.0-11.0) % Eos % (Auto) (0.0-7.0) % Baso % (Auto) (0.0-3.0) % Neut # (Auto) (1.7-7.0) K/uL Lymph # (Auto) (0.90-2.90) K/uL [place] # (Auto) (0.00-0.90) K/UL Eos # (Auto) (0.00-0.50) K/uL Baso # (Auto) (0.00-0.30) K/uL Abs Immat Gran (auto) (0.00-0.30) K/uL Imm/Tot Granulo (auto) % Sodium (135-149) mmol/L Potassium (3.6-5.1) mmol/L Chloride (96-114) mmol/L Carbon Dioxide (20-32) mmol/L Anion Gap (7-15) mEq/L BUN (7-30) mg/dL Creatinine (0.5-1.5) mg/dL Estimated Creat Clear Estimated GFR ml/min Glucose (60-115) mg/dL Calcium (8.4-10.6) mg/dL Total Bilirubin (0.1-1.5) mg/dL AST (12-35) U/L ALT (4-35) U/L Alkaline Phosphatase (40-150) U/L NT-Pro-B Natriuret Pep (See Note) pg/mL Total Protein (6.0-8.3) g/dL Albumin (3.3-5.0) g/dL Urine Color (Yellow) Urine Appearance (Clear) Urine pH (5.0-8.5) Ur Specific [place] (1.000-1.030) Urine Protein (Negative) Urine Glucose (UA) (Negative) Urine Ketones (Negative) Urine Blood (Negative) Urine Nitrite (Negative) Urine Bilirubin (Negative) Urine Urobilinogen (0.2-1.0) Ur Leukocyte Esterase (Negative) Urine RBC (0-2) Urine WBC (0-5) Ur Squamous Epith Cells (None-Few) Urine Bacteria (None) POC Troponin I 0.02 (0.01-0.04) ng/ml Imaging Data Chest x-ray: Attestation: I have reviewed the pertinent imaging results. My impression: No evidence of widened mediastinum or infiltrate. Radiologist's impression: FINDINGS: Cardiovascular and mediastinum: Borderline cardiomegaly, despite portable technique. Atherosclerotic and uncoiled thoracic aorta. Lungs and pleural spaces: Lungs are clear. No pleural effusion, or pneumothorax. Bones and soft tissues: Advanced osteoarthritis of the bilateral shoulders. No acute findings. IMPRESSION: No evidence of an acute pulmonary process. ECG Data Attestation: I personally reviewed and interpreted this ECG as follows: ECG interpretation date: 06/12/25 Interpretation: EKG by my read shows sinus bradycardia at a rate of 59. No acute ST or T-wave changes. QT and RI intervals within normal limits. Unfortunately do not have previous EKG for comparison. Discharge Plan Discharge Clinical Impression: Atypical chest pain, Headache, Hypertension Patient Disposition: Home, Self-Care Condition: Improved Additional Instructions: I suggest increasing the losartan dosing to 50 mg daily. Because this medication can affect the kidneys and your electrolytes I would ask that you talk to your primary clinic to see if they can arrange a recheck of your basic panel which includes potassium and creatinine. Return to the emergency room for worsening symptoms and as needed Prescriptions: No Action lovastatin 40 mg tablet 40 mg PO DAILY pantoprazole 40 mg tablet,delayed release (DR/EC) 40 mg PO DAILY losartan 25 mg tablet 25 mg PO DAILY hydrochlorothiazide 25 mg tablet 25 mg PO DAILY metoprolol succinate 25 mg tablet extended release 24 hr 25 mg PO DAILY Follow Up/Referrals: Keerthi Singh DO [Primary Care Provider, Family Practice] Stand Alone Forms: [facility] Medical Info Instructions
--- NOTE | 2025-06-11 22:29 | CRLHL7_ITS ---
For Patients: As a result of the Cures Act, medical imaging exams and procedure reports are released immediately into your electronic medical record. You may view this report before your referring provider. If you have questions, please contact your health care provider. INDICATION: Chest tightness. TECHNIQUE: Chest 1 view. COMPARISON: None. FINDINGS: Cardiovascular and mediastinum: Borderline cardiomegaly, despite portable technique. Atherosclerotic and uncoiled thoracic aorta. Lungs and pleural spaces: Lungs are clear. No pleural effusion, or pneumothorax. Bones and soft tissues: Advanced osteoarthritis of the bilateral shoulders. No acute findings. IMPRESSION: No evidence of an acute pulmonary process. Dictated by Juan Hernandez MD @ 06/11/2025 11:13:04 PM (Electronically Signed)
[2025-06-11 22:52] LABS: Appearance Urine Clear (Clear)
[2025-06-11 22:58] LABS: Hematocrit* 41.9 % (33.0-51.0); Hemoglobin* 13.3 gm/dL (12.0-16.0); Immature Granulocytes Abs Auto 0.07 K/uL (0.00-0.30); Immature Granulocytes Pct Auto 0.9 %; Lymphocytes Absolute Auto 2.12 K/uL (0.90-2.90); Mean Corpuscular HGB Conc 32 gm/dL (32-36); Mean Corpuscular Hemoglobin 29 pg (26-34); Mean Corpuscular Volume 90 fL (80-100); RDW Coefficient of Variation % 13.1 % (11.5-15.5); Red Blood Count* 4.67 m/uL (4.00-5.20); White Blood Count* 7.48 K/uL (4.50-11.00)
[2025-06-11 23:05] LABS: Slide Review Reflex No
[2025-06-11 23:08] LABS: Troponin, Point-of-Care* 0.02 ng/ml (0.01-0.04)
[2025-06-11 23:11] LABS: Albumin* 4.5 g/dL (3.3-5.0); Chloride* 99 mmol/L (96-114); Sodium* 136 mmol/L (135-149)
[2025-06-11 23:12] LABS: Potassium* 3.7 mmol/L (3.6-5.1)
[2025-06-11 23:14] LABS: Alanine Aminotransferase* 20 U/L (4-35); Alkaline Phosphatase* 70 U/L (40-150); Anion Gap 7 mEq/L (7-15); Aspartate Amino Transferase* 28 U/L (12-35); Bilirubin Total* 0.6 mg/dL (0.1-1.5); Blood Urea Nitrogen* 23 mg/dL (7-30); Carbon Dioxide* 30 mmol/L (20-32); Creatinine* 0.8 mg/dL (0.5-1.5); Est. Creatinine Clearance* 33.71; Estimated Glomerular Filt Rate 73 ml/min; Total Protein* 8.0 g/dL (6.0-8.3)
[2025-06-11 23:15] LABS: Calcium* 9.6 mg/dL (8.4-10.6); Glucose* 115 mg/dL (60-115)
[2025-06-11 23:29] LABS: NT Pro B Type NatriureticPept* 224 pg/mL (See Note)
[2025-06-12] VITALS: PULSE 64; RESP 10; O2SAT 73
[2025-06-12 00:15] VITALS: PULSE 63; RESP 23; O2SAT 97
[2025-06-12 00:36] VITALS: BP 174/79; PULSE 67; RESP 16; O2SAT 99
[2025-06-12 00:37] VITALS: PULSE 59; RESP 23; O2SAT 99
[2025-06-12 00:45] VITALS: PULSE 55; RESP 18; O2SAT 96
[2025-06-12 00:45] LABS: Troponin, Point-of-Care* 0.02 ng/ml (0.01-0.04)
[2025-06-12 00:49] VITALS: BP 144/72; PULSE 59; RESP 18; O2SAT 98
== END 2025-06-12 01:11 | disposition home or self-care (01) ==
PROVIDERS: Emergency Provider Family Medicine; PCP Family Medicine
DX: R07.89 Other chest pain (principal); R51.9 Headache, unspecified; I10 Essential (primary) hypertension; Z79.899 Other long term (current) drug therapy
CPT/HCPCS: 36415; 71045; 80053; 81001; 83880; 84484; 85025; 87086; 93005; 99284; 99285